=== PATIENT | female | born 1945 | race Hispanic/Latino ===

== ENCOUNTER 2017-09-17 13:05 | Emergency (ER) | payer SELFPAY ==
[~2017-09-17] VITALS: Ht 160 cm; Wt 75.7 kg
[2017-09-17] MEDS ORDERED: NORCO 5/3251 TABLET PO (16:45)
[2017-09-17 16:58] VITALS: BP 150/80
== END 2017-09-17 17:03 | disposition home or self-care (01) ==
LOC: EME 13:05
DX: S52.121A Displaced fracture of head of right radius, initial encounter for closed fracture (principal); W01.0XXA Fall on same level from slipping, tripping and stumbling without subsequent striking against object, initial encounter; Y93.02 Activity, running; Y92.096 Garden or yard of other non-institutional residence as the place of occurrence of the external cause; I10 Essential (primary) hypertension; Z86.73 Personal history of transient ischemic attack (TIA), and cerebral infarction without residual deficits
CPT/HCPCS: 73070; 73080; 73090; 73120; 99281; 99283; S0020